=== PATIENT | male | born 1950 | race African-American/Black ===

== ENCOUNTER 2021-08-29 23:29 | Emergency (ER) | payer MEDICARE, MEDICAID ==
[~2021-08-29] VITALS: Ht 165.1 cm; Wt 68.0 kg
[2021-08-29 23:36] VITALS: BP 100/70
== END 2021-08-30 00:58 | disposition home or self-care (01) ==
LOC: ER 23:29
DX: M79.672 Pain in left foot (principal); M79.671 Pain in right foot; Z13.9 Encounter for screening, unspecified; Z88.2 Allergy status to sulfonamides
CPT/HCPCS: 99283